=== PATIENT | male | born 1950 | race Caucasian/White ===

== ENCOUNTER 2017-04-09 13:26 | Inpatient (IN) | payer MEDICARE, OTHER ==
[~2017-04-09] VITALS: Ht 172.7 cm; Wt 82.2 kg
[2017-04-09 14:01] LABS: BASOPHIL 0.3 % (0-2); EOSINOPHIL 4.4 % (0-7); HCT 50.7 % (42.0-52.0); HGB 17.2 g/dl (13.2-18.0); MCH 33.5 pg (25.0-31.0); MCHC 33.9 g/dL (32.0-36.0); MCV 98.8 fL (78.0-100.0); MONOCYTE 10.4 % (0-12); MPV 9.1 fL (6.0-9.5); NEUTROPHIL 51.9 % (41-80); PLT 224 K/uL (150-400); RBC 5.13 M/uL (4.70-6.00); RDW 14.4 % (11.5-14.0); WBC 6.2 K/uL (4.0-10.5)
[2017-04-09 14:08] LABS: INR 0.96 (0.9-1.2); PROTHROMBIN TIME 12.4 SECONDS (11.7-14.0); PTT 35.8 SECONDS (23.2-31.4)
[2017-04-09 14:14] LABS: ALBUMIN 3.9 g/dL (3.4-4.8); BILIRUBIN - TOTAL 0.3 mg/dL (0.1-1.0); CREATININE 0.9 mg/dL (0.7-1.2); GLOBULIN (CALCULATION) 4.1 g/dL (2.2-4.2); MAGNESIUM 1.89 mg/dL (1.40-2.10); POTASSIUM 4.9 mmol/L (3.5-5.1)
[2017-04-09 14:16] LABS: LACTIC ACID 1.2 mmol/L (0.5-2.2)
[2017-04-09 14:16] LABS: MYOGLOBIN 59 ng/mL (26-65); TROPONIN T < 0.010 ng/mL
[2017-04-09 14:18] LABS: CKMB 5.63 ng/mL (0.97-4.94); PRO-BNP 167 pg/mL (0-125)
--- NOTE | 2017-04-11 22:31 | NUR ---
CALL FROM [facility] BED AVAILABLE, REPORT TO SOLEDAD IN PCU AT 5, CALL TO OSMAN SOSA AND SHE WILL TELL [facility], EMS CALLED
== END 2017-04-11 22:40 | disposition other institution (70) | DRG 189 ==
LOC: FER 13:26 → FTCU 15:05
PROVIDERS: Internal Medicine; ADMIT Internal Medicine
DX: J96.01 Acute respiratory failure with hypoxia (principal); J18.9 Pneumonia, unspecified organism; I50.9 Heart failure, unspecified; J44.0 Chronic obstructive pulmonary disease with (acute) lower respiratory infection; J44.1 Chronic obstructive pulmonary disease with (acute) exacerbation; F17.210 Nicotine dependence, cigarettes, uncomplicated; J96.21 Acute and chronic respiratory failure with hypoxia; J20.9 Acute bronchitis, unspecified; I25.10 Atherosclerotic heart disease of native coronary artery without angina pectoris; E03.9 Hypothyroidism, unspecified; J98.4 Other disorders of lung; Z72.89 Other problems related to lifestyle; Z95.1 Presence of aortocoronary bypass graft; Z91.19 Patient's noncompliance with other medical treatment and regimen; Z79.82 Long term (current) use of aspirin; Z79.899 Other long term (current) drug therapy
CPT/HCPCS: 36415; 36600; 71010; 71250; 80053; 82550; 82553; 82803; 83605; 83735; 83874; 83880; 84484; 85025; 85610; 85730; 87070; 87077; 87186; 87205; 93005; 94640; 94664; J0456; J1940; J2930

== ENCOUNTER 2021-04-05 13:21 | Emergency (ER) | payer MEDICARE, OTHER ==
[2021-04-05 14:30] LABS: BASOPHIL 0.6 % (0-2); EOSINOPHIL 0.3 % (0-7); HCT 22.8 % (42.0-52.0); LYMPHOCYTE 21.2 % (15-48); MCHC 30.7 g/dL (32.0-36.0); MONOCYTE 14.4 % (0-12); MPV 9.4 fL (6.0-9.5); NEUTROPHIL 62.9 % (41-80); NRBC 0; PLT 174 K/uL (150-400); RDW 17.8 % (11.5-14.0); WBC 3.4 K/uL (4.0-10.5)
[2021-04-05 14:50] LABS: BILIRUBIN NEGATIVE (NEGATIVE); BLOOD NEGATIVE Ery/uL (NEGATIVE); CLARITY CLEAR (CLEAR); COLOR YELLOW (YELLOW); GLUCOSE (U) NORMAL (NORMAL); LEUKOCYTES NEGATIVE Leu/uL (NEGATIVE); NITRITE NEGATIVE (NEGATIVE); PROTEIN NEGATIVE (NEGATIVE); SPECIFIC GRAVITY 1.015 (1.001-1.030)
[2021-04-05 15:20] LABS: CREATININE 0.89 mg/dL (0.67-1.17); POTASSIUM 4.6 mmol/L (3.5-5.1)
[2021-04-05 16:34] LABS: CORONAVIRUS 2019 SARS-COV-2 NEGATIVE (NEGATIVE); INFLUENZA A NAA NEGATIVE (NEGATIVE)
== END 2021-04-05 21:25 | disposition home or self-care (01) ==
LOC: FER 13:21
PROVIDERS: Nurse Practitioner Family
DX: D64.9 Anemia, unspecified (principal); J44.9 Chronic obstructive pulmonary disease, unspecified; C34.90 Malignant neoplasm of unspecified part of unspecified bronchus or lung; Z90.49 Acquired absence of other specified parts of digestive tract; Z95.1 Presence of aortocoronary bypass graft; Z20.822 Contact with and (suspected) exposure to COVID-19
CPT/HCPCS: 36415; 36430; 80048; 81003; 85025; 86850; 86900; 86901; 86922; J1642; J7030; P9016; U0002

== ENCOUNTER 2021-06-01 22:30 | Inpatient (IN) | payer MEDICARE ==
[~2021-06-01] VITALS: Ht 182.9 cm; Wt 93.6 kg
[2021-06-01 23:16] LABS: INR 0.97 (0.9-1.2); PROTHROMBIN TIME 12.3 SECONDS (11.8-13.4)
[2021-06-01 23:17] LABS: PTT 33.2 SECONDS (24.4-34.7)
[2021-06-01 23:28] LABS: BASOPHIL 0.5 % (0-2); EOSINOPHIL 1.2 % (0-7); HCT 42.9 % (42.0-52.0); HGB 12.3 g/dl (13.2-18.0); LYMPHOCYTE 28.5 % (15-48); MCH 32.1 pg (25.0-31.0); MCHC 28.7 g/dL (32.0-36.0); MONOCYTE 6.8 % (0-12); MPV 9.8 fL (6.0-9.5); NEUTROPHIL 62.3 % (41-80); NRBC 0; PLT 242 K/uL (150-400); RBC 3.83 M/uL (4.70-6.00); RDW 13.7 % (11.5-14.0); WBC 14.7 K/uL (4.0-10.5)
[2021-06-01 23:39] LABS: ALBUMIN 3.9 g/dL (3.4-5.0); BILIRUBIN - TOTAL 0.3 mg/dL (0.2-1.0); BUN/CREAT RATIO (CALC) 17.2 RATIO; C-REACTIVE PROTEIN 2.4 mg/dL (<=0.90); CREATININE 1.34 mg/dL (0.67-1.17); GLOBULIN (CALCULATION) 4.5 g/dL; MAGNESIUM 2.4 mg/dL (1.8-2.4); POTASSIUM 6.5 mmol/L (3.5-5.1); TOTAL PROTEIN 8.4 g/dL (6.4-8.2)
[2021-06-01 23:59] LABS: LACTIC ACID 2.3 mmol/L (0.4-1.9)
[2021-06-02 00:23] LABS: BILIRUBIN NEGATIVE (NEGATIVE); BLOOD TRACE-INTACT Ery/uL (NEGATIVE); CLARITY CLEAR (CLEAR); COLOR YELLOW (YELLOW); GLUCOSE (U) NORMAL (NORMAL); LEUKOCYTES NEGATIVE Leu/uL (NEGATIVE); NITRITE NEGATIVE (NEGATIVE); PROTEIN TRACE (LOW) mg/dL (NEGATIVE); SPECIFIC GRAVITY 1.025 (1.001-1.030); UROBILINOGEN 0.2 mg/dL (0.2-1.0)
[2021-06-02 03:05] LABS: BUN/CREAT RATIO (CALC) 19.2 RATIO; CREATININE 1.3 mg/dL (0.67-1.17); POTASSIUM 5.3 mmol/L (3.5-5.1)
[2021-06-02 06:25] LABS: BASOPHIL 0.1 % (0-2); EOSINOPHIL 0 % (0-7); HCT 36.1 % (42.0-52.0); LYMPHOCYTE 4.8 % (15-48); MCH 31.9 pg (25.0-31.0); MCHC 30.5 g/dL (32.0-36.0); MONOCYTE 2.5 % (0-12); MPV 9.3 fL (6.0-9.5); NEUTROPHIL 91.4 % (41-80); NRBC 0; PLT 196 K/uL (150-400); RBC 3.45 M/uL (4.70-6.00); RDW 13.8 % (11.5-14.0); WBC 8.6 K/uL (4.0-10.5)
[2021-06-02 06:38] LABS: MCV 104.6 fL (78.0-100.0)
[2021-06-02 15:34] LABS: RETICULOCYTE COUNT 1.7 % (1.0-2.0)
[2021-06-02 16:22] LABS: IRON % SATURATION 15.6 %SAT (20-50)
[2021-06-02 16:28] LABS: BUN/CREAT RATIO (CALC) 22.7 RATIO; CREATININE 1.32 mg/dL (0.67-1.17); FOLIC ACID (SERUM) 21.9 ng/mL (8.6-58.9); POTASSIUM 4.5 mmol/L (3.5-5.1)
[2021-06-03 05:24] LABS: INR 1.09 (0.9-1.2); PROTHROMBIN TIME 13.5 SECONDS (11.8-13.4); PTT 43.2 SECONDS (24.4-34.7)
[2021-06-03 05:34] LABS: BASOPHIL 0 % (0-2); EOSINOPHIL 0 % (0-7); HCT 32.8 % (42.0-52.0); HGB 9.6 g/dl (13.2-18.0); LYMPHOCYTE 3.9 % (15-48); MCH 31.2 pg (25.0-31.0); MCHC 29.3 g/dL (32.0-36.0); MCV 106.5 fL (78.0-100.0); MONOCYTE 2.9 % (0-12); MPV 9.9 fL (6.0-9.5); NRBC 0; PLT 160 K/uL (150-400); RBC 3.08 M/uL (4.70-6.00); RDW 14.4 % (11.5-14.0); WBC 7.7 K/uL (4.0-10.5)
[2021-06-03 05:37] LABS: BILIRUBIN - TOTAL 0.3 mg/dL (0.2-1.0); BUN/CREAT RATIO (CALC) 27.6 RATIO; CREATININE 1.23 mg/dL (0.67-1.17); GLOBULIN (CALCULATION) 3.9 g/dL; MAGNESIUM 1.9 mg/dL (1.8-2.4); PHOSPHORUS 4.1 mg/dL (2.6-4.7); POTASSIUM 4.4 mmol/L (3.5-5.1); TOTAL PROTEIN 6.9 g/dL (6.4-8.2)
[2021-06-03 05:43] LABS: NEUTROPHIL 91.8 % (41-80)
--- NOTE | 2021-06-03 08:48 | NUR ---
PT EXTUBATED AFTER DOING WELL WITH WEANING TRIAL. MASHA RT EXTUBATED WITH Yuki URBINA RN AND Yuki RAMIREZ AT BEDSIDE. PT SUCTIONED AND PLACED ON 4L NASAL CANNULA O2 SATURATION MAINTAINING AT 92%
--- NOTE | 2021-06-03 15:01 | NUR ---
06/03/21 Mr. Bhakta lives at home with his former spouse, former [id number] and a son. He has home 02. He does not have HH nor does Ms. Bhakta believe he will need HH at discharge.
[2021-06-04 04:35] LABS: ALBUMIN 2.9 g/dL (3.4-5.0); BILIRUBIN - TOTAL 0.3 mg/dL (0.2-1.0); BUN/CREAT RATIO (CALC) 31.2 RATIO; CREATININE 0.96 mg/dL (0.67-1.17); GLOBULIN (CALCULATION) 3.7 g/dL; MAGNESIUM 1.9 mg/dL (1.8-2.4); POTASSIUM 4.3 mmol/L (3.5-5.1); TOTAL PROTEIN 6.6 g/dL (6.4-8.2)
[2021-06-04 05:27] LABS: BASOPHIL 0 % (0-2); EOSINOPHIL 0 % (0-7); HCT 33.1 % (42.0-52.0); HGB 9.6 g/dl (13.2-18.0); LYMPHOCYTE 5.7 % (15-48); MCH 31.6 pg (25.0-31.0); MCV 108.9 fL (78.0-100.0); MONOCYTE 3.6 % (0-12); MPV 10.1 fL (6.0-9.5); NEUTROPHIL 89.7 % (41-80); NRBC 0; PLT 156 K/uL (150-400); RBC 3.04 M/uL (4.70-6.00); RDW 13.9 % (11.5-14.0); WBC 7.2 K/uL (4.0-10.5)
[2021-06-05 06:03] LABS: BASOPHIL 0 % (0-2); EOSINOPHIL 0 % (0-7); HCT 29.4 % (42.0-52.0); HGB 8.6 g/dl (13.2-18.0); LYMPHOCYTE 13.3 % (15-48); MCH 31.5 pg (25.0-31.0); MCHC 29.3 g/dL (32.0-36.0); MCV 107.7 fL (78.0-100.0); MONOCYTE 9.6 % (0-12); MPV 9.7 fL (6.0-9.5); NEUTROPHIL 75.5 % (41-80); NRBC 0; PLT 131 K/uL (150-400); RBC 2.73 M/uL (4.70-6.00); RDW 13.9 % (11.5-14.0); WBC 3.8 K/uL (4.0-10.5)
[2021-06-05 06:20] LABS: BUN/CREAT RATIO (CALC) 27.3 RATIO; CREATININE 0.99 mg/dL (0.67-1.17); POTASSIUM 3.9 mmol/L (3.5-5.1)
[2021-06-05] MEDS ORDERED: ASPIRIN EC81 MG PO (11:46)
[2021-06-05] MEDS ORDERED: DUONEB 2.5-0.5M1 AMP NEB (11:46)
[2021-06-05] MEDS ORDERED: SYNTHROID150 MCG PO (11:46)
[2021-06-05] MEDS ORDERED: AUGMENTIN 875-1 EACH PO (11:46)
[2021-06-05] MEDS ORDERED: DEXAMETHASONE 2M2 MG PO (11:46)
[2021-06-05] MEDS ORDERED: MUCINEX600 MG PO (11:47)
[2021-06-05] MEDS ORDERED: CRESTOR20 MG PO (11:47)
== END 2021-06-05 12:48 | disposition home or self-care (01) | DRG 871 ==
LOC: FER 22:30 → FICU 06-02 00:45 → FTCU 06-04 09:11 → FICU 06-04 09:11 → FTCU 06-04 09:11
PROVIDERS: Emergency Medicine; Nurse Practitioner; ADMIT Internal Medicine
PROC: 5A1945Z Respiratory Ventilation, 24-96 Consecutive Hours (ICD-10-PCS; principal; 2021-06-02)
PROC: 0BH17EZ Insertion of Endotracheal Airway into Trachea, Via Natural or Artificial Opening (ICD-10-PCS; 2021-06-02)
DX: A41.9 Sepsis, unspecified organism (principal); J18.9 Pneumonia, unspecified organism; J96.21 Acute and chronic respiratory failure with hypoxia; G93.41 Metabolic encephalopathy; I21.A1 Myocardial infarction type 2; J96.22 Acute and chronic respiratory failure with hypercapnia; G93.6 Cerebral edema; J44.1 Chronic obstructive pulmonary disease with (acute) exacerbation; J44.0 Chronic obstructive pulmonary disease with (acute) lower respiratory infection; C79.31 Secondary malignant neoplasm of brain; E87.2 Acidosis; C34.91 Malignant neoplasm of unspecified part of right bronchus or lung; I50.22 Chronic systolic (congestive) heart failure; Z20.822 Contact with and (suspected) exposure to COVID-19; Z51.5 Encounter for palliative care; R65.20 Severe sepsis without septic shock; D50.9 Iron deficiency anemia, unspecified; E87.5 Hyperkalemia; N18.9 Chronic kidney disease, unspecified; R73.9 Hyperglycemia, unspecified; I25.10 Atherosclerotic heart disease of native coronary artery without angina pectoris; J44.9 Chronic obstructive pulmonary disease, unspecified; E03.9 Hypothyroidism, unspecified; M19.90 Unspecified osteoarthritis, unspecified site; K21.9 Gastro-esophageal reflux disease without esophagitis; Z92.21 Personal history of antineoplastic chemotherapy; Z92.3 Personal history of irradiation; Z99.81 Dependence on supplemental oxygen; Z90.49 Acquired absence of other specified parts of digestive tract; Z95.1 Presence of aortocoronary bypass graft; Z98.890 Other specified postprocedural states
CPT/HCPCS: 36415; 36600; 70450; 70553; 71045; 71250; 74019; 80048; 80053; 80202; 81001; 82607; 82728; 82746; 82803; 83540; 83550; 83605; 83615; 83735; 83880; 84100; 84145; 84443; 84484; 85025; 85610; 85730; 86140; 87040; 87088; 93005; 94002; 94640; 94667; 94668; 97165; 97530; A9579; C9113; J0330; J0610; J1100; J1650; J1940; J2250; J2405; J2543; J2704; J2916; J2920; J3010; J3370; J7030; J7040; J7050; J7060; J8540; U0002

== ENCOUNTER 2021-06-07 10:35 | Emergency (ER) | payer MEDICARE ==
[~2021-06-07 10:35] MED LIST: ASPIRIN EC81 MG PO; AUGMENTIN 875-1 EACH PO; CRESTOR20 MG PO; DEXAMETHASONE 2M2 MG PO; DUONEB 2.5-0.5M1 AMP NEB; MUCINEX600 MG PO; SYNTHROID150 MCG PO
[2021-06-07 11:34] LABS: BASOPHIL 0 % (0-2); EOSINOPHIL 0 % (0-7); HCT 30.3 % (42.0-52.0); HGB 9.1 g/dl (13.2-18.0); LYMPHOCYTE 8.6 % (15-48); MCH 31.8 pg (25.0-31.0); MCV 105.9 fL (78.0-100.0); MONOCYTE 7.7 % (0-12); MPV 9.5 fL (6.0-9.5); NEUTROPHIL 82.1 % (41-80); NRBC 0.4; PLT 152 K/uL (150-400); RBC 2.86 M/uL (4.70-6.00); RDW 14.2 % (11.5-14.0); WBC 4.9 K/uL (4.0-10.5)
[2021-06-07 12:06] LABS: BILIRUBIN - TOTAL 0.5 mg/dL (0.2-1.0); BUN/CREAT RATIO (CALC) 24.7 RATIO; CREATININE 0.77 mg/dL (0.67-1.17); GLOBULIN (CALCULATION) 3.2 g/dL; POTASSIUM 3.6 mmol/L (3.5-5.1); TOTAL PROTEIN 6.2 g/dL (6.4-8.2)
[2021-06-07] MEDS ORDERED: LASIX20 MG PO (13:57)
== END 2021-06-07 14:24 | disposition home or self-care (01) ==
LOC: FER 10:35
PROVIDERS: Internal Medicine
DX: R07.89 Other chest pain (principal); R79.0 Abnormal level of blood mineral; D64.9 Anemia, unspecified; C34.90 Malignant neoplasm of unspecified part of unspecified bronchus or lung; C79.31 Secondary malignant neoplasm of brain; I25.810 Atherosclerosis of coronary artery bypass graft(s) without angina pectoris; J44.9 Chronic obstructive pulmonary disease, unspecified; Z87.891 Personal history of nicotine dependence; Z79.899 Other long term (current) drug therapy
CPT/HCPCS: 36415; 71045; 80053; 83880; 84145; 84484; 85025; 93005; J1642; J1940

== ENCOUNTER 2021-08-02 10:21 | Inpatient (IN) | payer MEDICARE ==
[~2021-08-02] VITALS: Ht 182.9 cm; Wt 87.1 kg
[~2021-08-02 10:21] MED LIST changes: +LASIX20 MG PO
[2021-08-02 10:37] LABS: BASOPHIL 0.3 % (0-2); EOSINOPHIL 0.4 % (0-7); HCT 39.8 % (42.0-52.0); LYMPHOCYTE 39.5 % (15-48); MCH 31.3 pg (25.0-31.0); MCHC 30.2 g/dL (32.0-36.0); MCV 103.9 fL (78.0-100.0); MONOCYTE 8.6 % (0-12); MPV 9.3 fL (6.0-9.5); NEUTROPHIL 50.5 % (41-80); NRBC 0; PLT 239 K/uL (150-400); RBC 3.83 M/uL (4.70-6.00); RDW 14.1 % (11.5-14.0); WBC 7.3 K/uL (4.0-10.5)
[2021-08-02 10:55] LABS: ALBUMIN 3.6 g/dL (3.4-5.0); BILIRUBIN - TOTAL 0.3 mg/dL (0.2-1.0); BUN/CREAT RATIO (CALC) 16.5 RATIO; CREATININE 1.03 mg/dL (0.67-1.17); GLOBULIN (CALCULATION) 4.6 g/dL; TOTAL PROTEIN 8.2 g/dL (6.4-8.2)
[2021-08-02 10:58] LABS: LACTIC ACID 6.6 mmol/L (0.4-1.9)
--- NOTE | 2021-08-02 17:32 | NUR ---
08/02/21 Mr. Bhakta lives with his former spouse, xuzdki-mo-rog and stepson. He has home 02 at [address]L [address] Dr. Morley's recommendation for Hospice was discussed with Mr. Bhakta and his former spuse, Andra Xiong. They wish to go home with Hospice. Karlene Nevarez, with Hospice, will meet with them on 09/03 at 9:30. - Mr. Bhakta wishes for his family to transport him home. - A report was given to Dr. Levine and LEONA Allen RN.
[2021-08-03] MEDS ORDERED: LEVETIRACETAM500 MG PO (14:05)
[2021-08-03] MEDS ORDERED: ATIVAN2 MG/ML SL (14:05)
[2021-08-03] MEDS ORDERED: DEXAMETHASONE4 MG PO (14:05)
--- NOTE | 2021-08-03 15:07 | NUR ---
08/03/21 Hospice accepted patient for admission today.
--- NOTE | 2021-08-04 10:17 | NUR ---
08/04/21 Karlene Nevarez, Hospice, reports patient to have refused Hospice when the field service specialist went to the home. According to Ms. Nevarez, Mr. Bhakta said his son does not wish for him to have Hospice services. The port was not de-accessed at discharge. - Marianela Xiong was informed.
== END 2021-08-03 14:30 | disposition hospice, home (50) | DRG 100 ==
LOC: FER 10:21 → FTCU 12:48
PROVIDERS: Emergency Medicine; ADMIT Internal Medicine
PROC: 5A09357 Assistance with Respiratory Ventilation, Less than 24 Consecutive Hours, Continuous Positive Airway Pressure (ICD-10-PCS; principal; 2021-08-02)
DX: G40.802 Other epilepsy, not intractable, without status epilepticus (principal); J96.01 Acute respiratory failure with hypoxia; J96.02 Acute respiratory failure with hypercapnia; R65.11 Systemic inflammatory response syndrome (SIRS) of non-infectious origin with acute organ dysfunction; C79.31 Secondary malignant neoplasm of brain; C34.90 Malignant neoplasm of unspecified part of unspecified bronchus or lung; Z20.822 Contact with and (suspected) exposure to COVID-19; Z66 Do not resuscitate; Z51.5 Encounter for palliative care; J44.9 Chronic obstructive pulmonary disease, unspecified; E03.9 Hypothyroidism, unspecified; I25.10 Atherosclerotic heart disease of native coronary artery without angina pectoris; M19.90 Unspecified osteoarthritis, unspecified site; K21.9 Gastro-esophageal reflux disease without esophagitis; D64.9 Anemia, unspecified; Z99.81 Dependence on supplemental oxygen; Z87.891 Personal history of nicotine dependence; Z95.1 Presence of aortocoronary bypass graft
CPT/HCPCS: 36415; 36600; 70450; 71045; 80053; 82803; 83605; 85025; 87040; 93005; 94010; 94640; 94660; C9113; J1100; J1953; J2060; U0002